=== PATIENT | female | born 1990 | race Two or more races ===

== ENCOUNTER 2016-12-04 18:01 | Emergency (ER) | payer BC, MEDICAID, OTHER ==
[2016-12-04] MEDS ORDERED: IOPAMIDOL 300 (61%) 150 ML VIAL IV ONE (18:02)
[2016-12-04 18:46] LABS: SPECIFIC GRAVITY 1.025 (1.001-1.030); URINE BILIRUBIN NEGATIVE (NEGATIVE); URINE BLOOD NEGATIVE (NEGATIVE); URINE GLUCOSE (UA) NEGATIVE (NEGATIVE); URINE LEUKOCYTE ESTERASE NEGATIVE (NEGATIVE); URINE NITRITE NEGATIVE (NEGATIVE); URINE PROTEIN 2+ (NEGATIVE); URINE UROBILINOGEN NORMAL (0-1 mg/dl)
[2016-12-04 18:49] LABS: URINE COLOR YELLOW
[2016-12-04] MEDS ORDERED: ACETAMINOPHEN 325 MG TABLET ONE (18:49)
[2016-12-04 18:50] LABS: URINE APPEARANCE SL CLOUDY
[2016-12-04 18:54] LABS: URINE RBC 0 /hpf
[2016-12-04 18:55] LABS: URINE BACTERIA 1+; URINE EPITHELIAL CELLS 20-30 /hpf; URINE MUCUS 2+
[2016-12-04 19:25] LABS: ABSOLUTE NEUTROPHIL COUNT 7.3 K/mm3 (1.8-7.7); BASO % 0.2 % (0.2-1.0); EOS # 0.3 (0.0-0.5); EOS % 2.3 % (0.9-2.9); HEMATOCRIT 33.6 % (37.0-47.0); HEMOGLOBIN 11.1 gm/l (12.0-16.0); IMM NEUT # 0.1 K/mm3 (0-0.2); IMM NEUT% 0.7 % (0-1); LYMPH # 4.5 (1.0-4.8); LYMPH % 35.2 % (15-45); MEAN CELL VOLUME 83.8 fl (81.0-99.0); MEAN CORPUSCULAR HEMOGLOBIN 27.7 pg (27.0-31.0); MEAN PLATELET VOLUME 9.5 fl (7.4-10.4); MONO # 0.6 (0.0-0.8); MONO % 4.7 % (4-12); NEUT % 56.9 % (43-75); PLATELET COUNT 378 K/mm3 (130-400); RED CELL DISTRIBUTION WIDTH 13.6 % (11.5-14.5)
[2016-12-04 19:46] LABS: ALB/GLOB RATIO 1.1 (>1.0); ALBUMIN 3.7 gm/dL (3.5-5.7); CALCIUM 8.7 mg/dL (8.6-10.3)
[2016-12-04 20:12] LABS: HCG,QUALITATIVE URINE NEGATIVE
--- NOTE | 2016-12-04 20:54 | CT ---
Exam Type: ABD/PELVIS W/ CON Date and Time: 12/04/2016 6:30 PM Clinical information: Right lower quadrant pain with tenderness. Comparison: Pelvic ultrasound dated 08/07/2015. Procedure: Imaging device: [employer] Aquilion [address] scanner 1 mm axial images were obtained through the abdomen and pelvis. Stacked reconstructed 3, 4 and 5 mm images were photographed in the axial coronal and sagittal planes. 125 ml of Isovue-[id number] was injected intravenously. Exam: with intravenous contrast. FINDINGS: Lung bases:The visualized lung bases appear to be appropriate with no mass, effusion or consolidation visualized. Liver: The liver appears to be of diffusely decreased attenuation when compared to the spleen. No focal mass or evidence of intrahepatic biliary dilatation is observed. Spleen: The spleen is homogeneous and does not appear to be enlarged. Gallbladder: There is the suggestion of multiple gallstones within the dependent portion of the gallbladder. Pancreas: Normal without enlargement or evidence of adjacent inflammatory changes. Adrenal glands: Normal without enlargement or evidence of adjacent inflammatory changes. Abdominal aorta: The aorta is of normal caliber and appears to be without significant atherosclerotic disease. Kidneys: The kidneys appear to be symmetric in size with no perinephric inflammatory changes are identified. No current findings of hydronephrosis are seen. Bowel structures: The visualized bowel is of normal caliber without evidence of dilatation or obstruction. No free fluid or mesenteric inflammatory changes are identified. Appendix: The appendix is well-visualized and appears to be of normal caliber. No periappendiceal inflammatory changes or CT findings of appendicitis are currently observed. Bladder: The bladder is of normal contour. No wall thickening or significant distention is observed. Hernia: No abdominal wall or inguinal hernia is visualized on this examination. Adenopathy: No significant enlarged adenopathy is visualized. Osseous structures: Lower thoracic degenerative changes are identified. Pelvic structures: The uterus appears to be of normal shape, size and contour. There are large partially cystic mass is identified within the anterior aspect of the pelvis, likely reflecting the patient's ovaries. The right ovary is enlarged measuring approximately 10.5 x 10.6 x 11.3 cm in size. The left ovary is markedly enlarged measuring 22.5 x 22.1 x 12.7 cm in size. This appears to be increased when compared to the prior pelvic ultrasound examination. Though possibly reflecting polycystic ovary syndrome, as is the patient's history, consideration may also be given to ovarian cystadenomas/cystadenocarcinomas. No pelvic free fluid is visualized. IMPRESSION: 1. Marked ovarian enlargement, left greater than right with multiple cystic components identified. The right ovary measures up to 11.3 cm in size, and the left ovary measures up to 22.5 cm in size. The ovaries appear to be increased when compared to the prior pelvic ultrasound examination. This may reflect the patient's known polycystic ovary syndrome, though consideration may also be given to ovarian cystadenomas/cystadenocarcinomas. No free fluid is currently visualized. 2. A normal appearance the appendix without CT evidence of appendicitis. 3. Findings most commonly associated with diffuse fatty infiltration of the liver. 4. Lower thoracic degenerative changes.
[2016-12-04] MEDS ORDERED: OXYCODONE/ACETAMINOPHEN 5/325 MG TABLET ONE (21:38)
== END 2016-12-04 18:02 | disposition home or self-care (01) ==
LOC: ED 18:01
DX: E28.2 Polycystic ovarian syndrome (principal); G47.419 Narcolepsy without cataplexy; I10 Essential (primary) hypertension; G47.30 Sleep apnea, unspecified; F32.9 Major depressive disorder, single episode, unspecified; Z79.899 Other long term (current) drug therapy
CPT/HCPCS: 83690; 81025; 85025; 80053; 81001; 74177; 99284 ×2; A9270 ×2; Q9967